=== PATIENT | female | born 1975 | race American Indian/Alaskan Native ===

== ENCOUNTER 2017-04-29 06:43 | Day surgery (SDC) | payer OTHER ==
[2017-04-24 11:01] VITALS: BMI 27.4
[2017-04-29] MEDS ORDERED: cefOXitin IV 1 gm in Dextrose 0 GM/0 ML BAG IVPB ONE (07:36)
[2017-04-29] MEDS ORDERED: cefOXitin IV 2 gm in Dextrose 2 GM/50 ML BAG IVPB ONE (07:53)
[2017-04-29] MEDS ORDERED: HYDROmorphone 0.5 mg/0.5 ml ISec IVP PRN (08:16)
[2017-04-29] MEDS ORDERED: Lactated Ringer's 1,000 ML IV ONE (08:17)
[2017-04-29] MEDS ORDERED: HYDROmorphone 0.5 mg/0.5 ml ISec IVP ONE (08:46)
--- NOTE | 2017-04-29 10:00 | OP ---
PROCEDURE DATE: 04/29/2017 PREOPERATIVE DIAGNOSES: Fibroid uterus, menorrhagia. POSTOPERATIVE DIAGNOSES: Fibroid uterus, menorrhagia. PROCEDURE: Hysteroscopic myomectomy, D and C of the uterus. FINDINGS: A 1 cm posterior submucosal fibroid. The remainder of the endometrial cavity and tubal os tia were normal, normal endocervical canal. LABORATORY DEVELOPMENT TECHNICIAN: Dr. Leiva. ANESTHESIA: General. ESTIMATED BLOOD LOSS: Less than 1 mL. COMPLICATIONS: Nil. After the risks, benefits, and alternatives of the planned procedures including, but not limited to i nfection, hemorrhage, deep vein thrombosis, atelectasis, pneumonia, pulmonary embolism, damage to corina dder, damage to ureter, renal insufficiency, renal failure, wound infection, wound dehiscence, incisi onal hernia, keloid formation, damage to large and small intestine, damage to inferior vena cava and aorta requiring extensive repair, anesthesia complications, electrolyte imbalance, possibility of nasir th, fluid overload, cerebral edema, air embolism, and other complications that were discussed, but ar e not listed above had been explained to the patient and all her questions answered, informed consent was obtained. The patient was taken to the operating room in a stable condition. Under suitable le mya of general anesthesia, she was prepped and draped in a sterile fashion. After having been placed in a dorsal lithotomy position. Jones catheter was inserted. Examination under anesthesia revealed a normal size uterus, anteverted with no adnexal masses. A weighted speculum was inserted into the vagina. The anterior lip of the cervix was grasped using a single tooth tenaculum. An endocervical curettage was performed and scant tissue was obtained. Uterus was sounded to 7 cm. The cervix was d ilated to a #18 Hanks dilator. Hysteroscope was inserted into the uterus. Using a MyoSure device, a 1 cm posterior submucosal myoma was resected with good hemostasis up to the level of the endometrium . The hysteroscope was then removed. An endometrial curettage was performed and scant tissue was ob tained. Instruments were then removed from the vagina. There was good hemostasis. The patient was then transferred to the recovery room in a stable condition. Pad and instrument counts were correct x 2. There were no complications. Veto Leiva MD cc: [id number] TT: 04/29/2017 10:00:10 tn
[2017-04-29 12:00] VITALS: BP 121/73; PULSE 73; RESP 18; TEMP 97.7; O2SAT 100
== END 2017-04-29 12:03 | disposition home or self-care (01) ==
LOC: C.SDS 06:43
PROVIDERS: ATTEND Obstetrics & Gynecology Reproductive Endocrinology
DX: D25.0 Submucous leiomyoma of uterus (principal); N92.0 Excessive and frequent menstruation with regular cycle
CPT/HCPCS: 36415; 58145; 58558; 86850; 86900; 88305; J0694; J1170; J7120